=== PATIENT | male | born 1995 | race Caucasian/White ===

== ENCOUNTER → 2018-02-02 | Day surgery (SDC) | payer OTHER ==
[~2018-02-02] MED LIST: ASPIRIN325 PO; HYDROCODONE-AP1 EAC6 PO; IBUPROFEN 800800 M1 PO; NORCO 5-325 TA1 EACH PO; PERCOCET PO; RESTORIL15 MG PO; ULTRAM 50MG TAB50 MG
--- NOTE | 2018-03-16 16:14 | OP ---
[address] [place] [address] OPERATIVE REPORT Name: LEON KRUGER Alli Room: [facility]#: [id number] Admission: 02/02/18 Attend Phys: Thierry Levine Discharge: Date of : [birth year] Report #: [id number] THIS REPORT FOR: //name// CC: Simba Dixon DICTATED BY: Lizandro Bae DATE OF SERVICE: 02/02/2018 PREOPERATIVE DIAGNOSES: 1. 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 2. Partial thickness rotator cuff tear. POSTOPERATIVE DIAGNOSES: 1. 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 2. Partial thickness rotator cuff tear. PROCEDURE: 1. Right shoulder arthroscopy with labral repair and Remplissage. 2. Debridement of partial rotator cuff tear. SURGEON: Simba Castorena DO DATA ADMINISTRATOR: Lizandro Bae DO SECOND DATA ADMINISTRATOR: Brandon Josue DO ANESTHESIA: General. ESTIMATED BLOOD LOSS: Minimal. ANTIBIOTICS: 1 gram Ancef IV prior to incision. COMPLICATIONS: None. SPECIMENS: None. DRAINS: None. CONDITION: The patient is stable to PACU. FINDINGS: Surgeon's inspection of the joint arthroscopically showed gross instability of the shoulder with a circumferential 360-degree labral tear. The articular cartilage was in good condition with the exception of a large Hill-Sachs lesion posteriorly from previous dislocation. The patient had [facility] [address] [place] [place] [address] OPERATIVE REPORT Name: LEON KRUGER Room: [facility]#: [id number] Admission: 02/02/18 Attend Phys: Thierry Levine Discharge: Date of : 89 Report #: [id number] undersurface partial thickness rotator cuff tear that was less than 25% of the rotator cuff substance. IMPLANTS: 1. Nine [employer] SutureTaks, knotless. 2. Two Bio[employer]posite SutureTaks with FiberTape for Remplissage. INDICATIONS: The patient is a 22-year-old male with longstanding right shoulder pain and instability. He has had multiple dislocation events and continues to have instability with everyday use. He underwent MRI evaluation of his right shoulder, it demonstrated a large labral tear as well as a large Hill-Sachs lesion. The rotator cuff appeared to be in good condition. After discussing the risks, benefits, complications, alternatives and indications to right shoulder arthroscopic surgery including, but not limited to bleeding, infection, neurovascular injury, continued pain, need for further surgery, continued instability, stiffness, DVT, PE and inherent risks of anesthesia, he is willing to proceed. Consent is available in the chart. DESCRIPTION OF PROCEDURE: The patient was seen in the preoperative holding area and operative site initialed by the operating surgeon. He was brought back to operative suite, placed on the operative table in supine position. General anesthesia was induced. He was then positioned in the left lateral decubitus position with the operative side up using a beanbag with all extremities well-padded and supported. Axillary roll was placed. The right upper extremity was positioned in the arthroscopic arm zepeda and the right shoulder was sterilely prepped and draped in normal fashion. Timeout was performed in usual fashion, all attendants were in agreement. The shaver was used to debride the undersurface rotator cuff tear. An 11-blade scalpel was used to make a posterior portal incision through the skin. Blunt trocar was used to access the joint. The camera was introduced and the shoulder was insufflated with normal saline. Diagnostic arthroscopy was performed with the above-mentioned findings. Anterior portal was established high in the rotator interval using a spinal needle. An 11-blade scalpel was used to incise the skin and a blunt trocar was used to access the joint anteriorly. An anterior accessory portal was also established with a spinal needle for trajectory, 11-blade scalpel was used to the skin. Blunt trocar was used to access this anterior portal low in the rotator interval. A tissue liberator was then advanced into the joint and the anterior tissue with labrum and capsule was peeled back off the glenoid for further mobilization. A rasp was used to further prepare the glenoid for repair. After enough mobility was established with the labrum and capsule, a knotless SutureTak was drilled and impacted into place roughly about the 5 o'clock position. A suture Lasso was used to purchase anterior capsule and labrum and the passing suture was passed in usual fashion. The knot was tacked, was then cinched down in the usual fashion with a good repair of the anterior labrum with a bumper. Three more knotless SutureTaks were drilled and impacted into place and passed underneath the anterior labrum and anterior capsule with [address] [place] [address] OPERATIVE REPORT Name: LEON KRUGER Room: [facility] Amrita#: [id number] Admission: 02/02/18 Attend Phys: Thierry Levine Discharge: Date of : 89 Report #: [id number] excellent purchase on the anterior surface of the glenoid roughly from 4 o'clock to 1 o'clock. Next, the switching stick was used through the anterior portal and the camera was placed anteriorly. We were able to view the extent of the posterior labral tear from this site. The posterior skin incision was then elongated for passage of a cannula. An accessory posterior portal was established with spinal needle for trajectory. An 11-blade scalpel was used through the skin. Blunt trocar was used to access this distally roughly the 7 o'clock position of the glenoid. The drill guide was advanced through this portal site and the posterior labrum was prepared with a tissue liberator, shaver and a rasp in the usual fashion similar to the anterior aspect. Once the glenoid was prepared, the drill guide was advanced to the 7 o'clock position and a knotless SutureTak was drilled and impacted into place in the usual fashion. Suture Lasso was used to get purchase of posterior labrum and capsule. The knot was tacked and was cinched down in the usual fashion. Three more knotless tacks were then placed in a similar fashion roughly from the 8 o'clock to 11 o'clock positions on the glenoid. All anchors had excellent purchase and restored labral tissue on top of the glenoid. The camera was then switched back to the posterior viewing portal and a spinal needle was used for localization of a percutaneous site insertion of a SutureTak. This last anchor was at the base of the biceps for a biceps anchor repair. The tissue bed was prepared with a ring curette and a shaver. Percutaneous spinal needle was advanced followed by nitinol wire cannula and finally the drill cannula. This was positioned and a knotless SutureTak was drilled, impacted into place in usual fashion. A suture Lasso was then brought in the shoulder anteriorly and a biceps anchor repair was performed with purchase through the base of the tendon and labrum. The passing suture was then passed in normal fashion and the knotless anchor was tied down in normal fashion with excellent purchase. The labrum was probed and found to be quite stable circumferentially. The camera was then moved to an anterior portal site again and the cannula was advanced to the posterior portal incision. The Hill-Sachs lesion was identified and a ring curette was used to prepare the tissue bed. Shaver was also used. Two SutureTaks with a FiberTape were then drilled and impacted into place right at the articular margin of the Hill-Sachs lesion. A tissue penetrator was then used to get full thickness bites of the infraspinatus tendon posteriorly. The suture tapes were then passed through these sites. One limb from each suture was tied together and cinched down. The camera was viewing the Hill-Sachs lesion as this was tensioned down with good fill from the rotator cuff. The remaining 2 limbs of the suture tapes were then tied arthroscopically using a knot pusher with excellent purchase. The suture limbs were then cut arthroscopically. Final pictures were obtained and the instruments were removed. The shoulder was drained of fluid and incisions closed with 3-0 nylon in simple interrupted fashion. Dressings were placed in the form of Xeroform gauze, 4 x 4s, ABDs and tape. The patient was placed in a slingshot immobilizer and transferred [place] [address] OPERATIVE REPORT Name: LEON KRUGER Room: [facility] Amrita#: [id number] Admission: 02/02/18 Attend Phys: Thierry Levine Discharge: Date of : 89 Report #: [id number] needle counts were correct times 2. Dr. Castorena was present throughout the critical aspects of surgery. The patient tolerated the procedure well. <ELECTRONICALLY SIGNED> By: Simba Castorena DO 03/16/18 1614 [id number] Castorena DO /nt
== END | disposition home or self-care (01) ==
LOC: M.SUR 10:06
DX: S43.491A Other sprain of right shoulder joint, initial encounter (principal); M75.101 Unspecified rotator cuff tear or rupture of right shoulder, not specified as traumatic; S42.291A Other displaced fracture of upper end of right humerus, initial encounter for closed fracture; X58.XXXA Exposure to other specified factors, initial encounter; Y93.89 Activity, other specified; Y92.89 Other specified places as the place of occurrence of the external cause; Y99.8 Other external cause status; Z79.82 Long term (current) use of aspirin; Z79.891 Long term (current) use of opiate analgesic